=== PATIENT | female | born 1980 | race Caucasian/White ===

== ENCOUNTER 2019-04-09 10:01 | Outpatient (CLI) | payer OTHER ==
--- NOTE | 2019-04-09 14:04 | ULT ---
OB ULTRASOUND: Date: 04/09/2019 HISTORY: Size and dates. FINDINGS: A single, live intrauterine gestation is seen with measurements corresponding to an estimated gestati onal age of 21 weeks/0 days and [place]CKINLEY at 08/20/2017. Estimated weight measures 398 gm (46% by Samia nner criteria). measurements are as follows: BPD: 4.96 cm, 21 weeks/0 days HC: 19.0 cm, 21 weeks/2 days AC: 16.1 cm, 21 weeks/1 day FL: 3.46 cm, 20 weeks/6 days heart rate measures 140 bpm. CLOTILDE measures 12.4 cm. Placenta is anteriorly located without evidence of placenta previa. 3 vessel cord, cord insertion, kidneys, bladder, stomach, 4 chamber heart, lateral ventricles, cerebellum, spine, lips/nose, and upper/lower extremities visualized. No definite anomalies are seen. IMPRESSION: Single, live intrauterine of 21 weeks/0 days estimated gestational age and MCKINLEY at 0. POS: [facility]
== END 2019-04-09 10:02 | disposition home or self-care (01) ==
LOC: NAV ULT 10:01
PROVIDERS: ATTEND Family Medicine
DX: O09.522 Supervision of elderly multigravida, second trimester (principal); Z3A.21 21 weeks gestation of pregnancy
CPT/HCPCS: 76805

== ENCOUNTER 2019-12-19 17:15 | Emergency (ER) | payer OTHER ==
[2019-12-19] MEDS ORDERED: Sulfameth/Trimethoprim DS 800-160mg TAB ONE (17:45)
[2019-12-19] MEDS ORDERED: cefTRIAXone\\ROCEPHIN 1 GM VIAL ONE (17:45)
[2019-12-19] MEDS ORDERED: Ketorolac Tromethamine 30 MG/ML VIAL ONE (17:45)
== END 2019-12-19 18:10 | disposition home or self-care (01) ==
LOC: NAV ERS 17:15
DX: K02.9 Dental caries, unspecified (principal); L03.314 Cellulitis of groin; I10 Essential (primary) hypertension; F41.9 Anxiety disorder, unspecified; F17.210 Nicotine dependence, cigarettes, uncomplicated
CPT/HCPCS: 96372; 99282; J0696; J1885